=== PATIENT | female | born 1960 | race Caucasian/White ===

== ENCOUNTER → 2018-02-22 | Day surgery (SDC) | payer OTHER ==
--- NOTE | 2018-02-25 13:27 | PATH ---
Surgical Pathology Report Patient Name: SHIVANI TILLEY [facility]. Rec. #: [id number] /Age/Gender: 1960 (Age: 57) / F Account: [id number] Location: [facility] U Taken: 02/22/2018 Received: 02/22/2018 Reported: 02/25/2018 Physicians: Lenin Hester M.D. Specimen(s) Received LEFT BREAST 11:00 3 CM FN CORE BIOPSY Clinical History Ultrasound findings: Suspicious Final Diagnosis BREAST, LEFT, 11:00 3 CM FN, CORE BIOPSY: BENIGN BREAST TISSUE SHOWING STROMAL FIBROSIS. Electronically Signed Radha Conway M.D. Gross Description Received in formalin labeled "left breast biopsy 11:00, 3 cmfn," is a 1.5 x 1.1 x 0.2 cm aggregate of silveira-yellow, irregular to cylindrical portions of fibroadipose tissue. The formalin is filtered and the specimen is entirely submitted in one cassette. Time to formalin fixation: 2 minutes Total formalin fixation time: Approximately 10 hours. 02/22/2018 [facility]02/22/2018
== END | disposition home or self-care (01) ==
LOC: FRADUS-SUR 11:55
PROVIDERS: ATTEND Surgery Surgical Oncology
PROC: 0HBU3ZX Excision of Left Breast, Percutaneous Approach, Diagnostic (ICD-10-PCS; principal; 2018-02-22)
DX: N60.32 Fibrosclerosis of left breast (principal); N63.22 Unspecified lump in the left breast, upper inner quadrant
CPT/HCPCS: 19083; 77065-TC; 87899; 88305-TC; A4648

== ENCOUNTER 2020-06-13 12:47 | Emergency (ER) | payer OTHER | END 2020-06-13 13:19 | disposition home or self-care (01) | LOC: JVIRT 12:47 | DX: Z03.818 Encounter for observation for suspected exposure to other biological agents ruled out (principal) | CPT/HCPCS: C9803; G2012-GT; U0003 ==

== ENCOUNTER 2020-07-28 10:05 | Emergency (ER) | payer OTHER | END 2020-07-28 10:31 | disposition home or self-care (01) | LOC: JVIRT 10:05 | DX: U07.1 COVID-19 (principal); R05 Cough | CPT/HCPCS: C9803; G2012-GT; U0003 ==

== ENCOUNTER 2025-02-11 06:17 | Day surgery (SDC) | payer OTHER, MEDICARE ==
[2025-02-02 14:34] VITALS: BMI 28.9
[2025-02-11 09:36] VITALS: TEMP 98.6
[2025-02-11 10:12] VITALS: BP 120/81; PULSE 70; RESP 16
== END 2025-02-11 10:35 | disposition home or self-care (01) ==
LOC: JASU-ENDO 06:17
PROVIDERS: ATTEND Internal Medicine Gastroenterology
PROC: 0DBP8ZX Excision of Rectum, Via Natural or Artificial Opening Endoscopic, Diagnostic (ICD-10-PCS; principal; 2025-02-11 09:00)
DX: Z12.11 Encounter for screening for malignant neoplasm of colon (principal); D12.8 Benign neoplasm of rectum; K57.30 Diverticulosis of large intestine without perforation or abscess without bleeding; Z86.0100 Personal history of colon polyps, unspecified
CPT/HCPCS: 88305-TC